=== PATIENT | female | born 1975 | race Caucasian/White ===

== ENCOUNTER → 2018-07-17 | Outpatient (CLI) | payer OTHER | LOC: BMCIMAGING 15:33 | PROVIDERS: ATTEND Orthopaedic Surgery Hand Surgery | DX: M25.511 Pain in right shoulder (principal) ==

== ENCOUNTER 2019-01-02 18:19 | Observation (INO) | payer OTHER ==
[2019-01-02] MEDS ORDERED: ONDANSETRON 4 MG/2 ML VIAL IVP ONE (18:39)
[2019-01-02] MEDS ORDERED: NS 1,000 ML IV ONE (18:39)
[2019-01-02] MEDS ORDERED: HYDROmorphONE/DILAUDID 2 MG/ML INJ IVP ONE ×2 (18:39→19:36)
--- NOTE | 2019-01-02 18:43 | EDPHY ---
H & P Stated Complaint: abd pain, n/v Time Seen by Provider: 01/02/19 18:34 HPI/ROS: CHIEF COMPLAINT: Abdominal pain and distension HISTORY OF PRESENT ILLNESS: The patient is a 43-year-old female who comes to the emergency department complaining of abdominal pain distension and 2 episodes of vomiting that began this afternoon at 1:00 p.m.. She has a history of gastric bypass 2 years ago as well as hiatal hernia repair, cholecystectomy and hysterectomy. She reports that she is still passing gas and did have a normal bowel movement today although she tends to have chronic diarrhea. No blood in her vomit or stool. No fever. She also reports history of pancreatitis but states that this feels much worsens diffuse. No history of ascites or liver disease. She denies urinary symptoms. Severity: Severe Modifying factors: None REVIEW OF SYSTEMS: Constitutional: denies: chills, fever, recent illness, recent injury EENTM: denies: blurred vision, double vision, nose congestion Respiratory: denies: cough, shortness of breath Cardiac: denies: chest pain, irregular heart rate, lightheadedness, palpitations Gastrointestinal/Abdominal: See HPI Genitourinary: denies: dysuria, frequency, hematuria, pain Musculoskeletal: denies: joint pain, muscle pain Skin: denies: lesions, rash, jaundice, bruising Neurological: denies: headache, numbness, paresthesia, tingling, dizziness, weakness Hematologic/Lymphatic: denies: blood clots, easy bleeding, easy bruising Immunologic/allergic: denies: HIV/AIDS, transplant 10 systems reviewed and negative except as noted EXAM: GENERAL: Sitting forward in bed, will not lay back, significant pain. HEAD: Atraumatic, normocephalic. EYES: Pupils equal round and reactive to light, extraocular movements intact, sclera anicteric, conjunctiva are normal. ENT: TMs normal, nares patent, oropharynx clear without exudates. Moist mucous membranes. NECK: Normal range of motion, supple without lymphadenopathy or JVD. LUNGS: Breath sounds clear to auscultation bilaterally and equal. No wheezes rales or rhonchi. HEART: Regular rate and rhythm without murmurs, rubs or gallops. ABDOMEN: Distended, firm, diffusely tender BACK: No CVA tenderness, no spinal tenderness, step-offs or deformities EXTREMITIES: Normal range of motion, no pitting or edema. No clubbing or cyanosis. NEUROLOGICAL: Cranial nerves II through XII grossly intact. Normal speech, normal gait. 5/5 strength, normal movement in all extremities, normal sensation , normal reflexes PSYCH: Normal mood, normal affect. SKIN: Diffuse splotchy sunburn Source: Patient Exam Limitations: No limitations - Personal History Current Tetanus/Diphtheria Vaccine: Yes Current Tetanus Diphtheria and Acellular Pertussis (TDAP): Yes - Medical/Surgical History Hx Asthma: Yes Hx Chronic Respiratory Disease: No Hx Diabetes: No Hx Cardiac Disease: No Hx Renal Disease: No Hx Cirrhosis: No Hx Alcoholism: No Hx HIV/AIDS: No Hx Splenectomy or Spleen Trauma: No Other PMH: Hysterectomy colon resection and appy - Family History Significant Family History: No pertinent family hx - Social History Smoking Status: Current every day smoker Alcohol Use: None Constitutional: Initial Vital Signs Temperature (C) 36.9 C 01/02/19 18:22 Heart Rate 54 L 01/02/19 18:22 Respiratory Rate 16 01/02/19 18:22 Blood Pressure 116/59 L 01/02/19 18:22 O2 Sat (%) 100 01/02/19 18:22 O2 Delivery Mode Room Air Allergies/Adverse Reactions: NSAIDS (Non-Steroidal Anti-Inflamma Allergy (Verified 01/02/19 18:21) Home Medications: Medication Instructions Recorded ALPRAZolam [Xanax 1 MG (RX)] 1 mg PO DAILY PRN 05/15/14 Albuterol [Proventil Inhaler HFA 2 puffs IH Q4 PRN 05/15/14 (RX)] Herbals/Supplements -Info Only 1 ea PO DAILY 01/02/19 Pantoprazole Sodium [Protonix 40mg 40 mg PO DAILY 01/02/19 (*)] Sucralfate [Carafate] 1 gm PO BID 01/02/19 buPROPion [Wellbutrin 100mg (*)] 300 mg PO DAILY 01/02/19 Medical Decision Making - Diagnostics Imaging Results: Imaging Impressions Abdomen CT 01/02/19 18:40 Impression: 1. Nonspecific enteritis with some interloop free fluid. 2. Transition with caliber change involving the distal transverse colon before the level of the splenic flexure, without convincing torsion; could this be a result of adhesions given the patient's prior surgical features following gastric bypass in the left upper quadrant of the abdomen? 3. Status post cholecystectomy with prominent intra- and extrahepatic biliary system. Correlation with a fractionated serum bilirubin is suggested as an ampullary stenosis is not excluded; alternatively, this may represent a "reservoir" type affect given the patient's prior cholecystectomy. 4. Nonobstructive left nephrolithiasis. 5. Status post hysterectomy (and resection of a previously-noted left adnexal mass). Findings were discussed with MARY LOMBARDO MD, and I also reviewed the findings with RAGHAVENDRA GIBSON MD at 20:50, on 01/02/2019. Imaging: Discussed imaging studies w/ call center operator Radiologist ED Course/Re-evaluation: 7:30 p.m. the patient has had continued abdominal pain in his refusing to lay down. She was given a dose of Haldol which helped significantly and then a 2nd dose of Dilaudid. She is now going to CT scan. 8:[address] findings with radiology and with Dr. Gibson and with the patient. Will admit for pain control. No obvious source of her pain at this time other then constipation and gas. She has required several doses of pain medication and will not be able to go home with this level of pain. 9:30 p.m. the patient was evaluated by Dr. Gibson who states that this is happened multiple times to the patient and that she has a history of multiple adhesions. She is hesitant to explore without reviewing previous surgical notes and less there is a very good reason because she is concerned about causing further complication. She does agree with admission but suggested miss into the hospitalist service and have surgery service consult. She also suggests likely small-bowel follow-through. We Have paged Dr. Adair. Differential Diagnosis: Partial list of the Differential diagnosis considered include but were not limited to; obstruction, volvulus, ischemia, constipation and although unlikely based on the history and physical exam, I also considered perforation, acute coronary disease, PE, urinary tract infection, kidney stone. I discussed these differential diagnoses and the plan with the patient as well as the usual and expected course. The patient understands that the diagnosis is provisional and that in medicine we are not always correct and that further workup is often warranted. Usual and customary warnings were given. All of the patient's questions were answered. The patient was instructed to return to the emergency department should the symptoms at all worsen or return, otherwise to followup with the physician as we discussed. - Data Points Laboratory Results: Laboratory Results 01/02/19 18:40 01/02/19 18:40 01/02/19 01/02/19 01/02/19 18:40 18:40 18:40 WBC RBC Hgb Hct MCV MCH MCHC RDW Plt Count MPV Neut % (Auto) Lymph % (Auto) [place] % (Auto) Eos % (Auto) Baso % (Auto) Nucleat RBC Rel Count Absolute Neuts (auto) Absolute Lymphs (auto) Absolute Monos (auto) Absolute Eos (auto) Absolute Basos (auto) Absolute Nucleated RBC Immature Gran % Immature Gran # PT 12.4 SEC SEC (12.0-15.0) INR 0.96 (0.83-1.16) APTT 27.3 SEC SEC (23.0-38.0) Sodium 139 mEq/L mEq/L (135-145) Potassium 3.7 mEq/L mEq/L (3.5-5.2) Chloride 108 mEq/L mEq/L (97-110) Carbon Dioxide 21 mEq/l L mEq/l (22-31) Anion Gap 10 mEq/L mEq/L (6-14) BUN 12 mg/dL mg/dL (7-23) Creatinine 0.5 mg/dL L mg/dL (0.6-1.0) Estimated GFR > 60 Glucose 79 mg/dL mg/dL (70-100) Calcium 8.8 mg/dL mg/dL (8.5-10.4) Total Bilirubin 1.2 mg/dL mg/dL (0.1-1.4) Conjugated Bilirubin 0.2 mg/dL mg/dL (0.0-0.5) Unconjugated Bilirubin 1.0 mg/dL mg/dL (0.0-1.1) AST 15 IU/L IU/L (14-46) ALT 29 IU/L IU/L (9-52) Alkaline Phosphatase 78 IU/L IU/L (38-126) Total Protein 6.4 g/dL g/dL (6.3-8.2) Albumin 4.0 g/dL g/dL (3.5-5.0) Lipase 76 IU/L IU/L (23-300) Beta HCG, Qual NEGATIVE 01/02/19 18:40 WBC 5.43 10^3/uL 10^3/uL (3.80-9.50) RBC 4.09 10^6/uL L 10^6/uL (4.18-5.33) Hgb 12.4 g/dL L g/dL (12.6-16.3) Hct 36.7 % L % (38.0-47.0) MCV 89.7 fL fL (81.5-99.8) MCH 30.3 pg pg (27.9-34.1) MCHC 33.8 g/dL g/dL (32.4-36.7) RDW 13.4 % % (11.5-15.2) Plt Count 225 10^3/uL 10^3/uL (150-400) MPV 10.4 fL fL (8.7-11.7) Neut % (Auto) 61.3 % % (39.3-74.2) Lymph % (Auto) 26.9 % % (15.0-45.0) [place] % (Auto) 6.8 % % (4.5-13.0) Eos % (Auto) 4.4 % % (0.6-7.6) Baso % (Auto) 0.4 % % (0.3-1.7) Nucleat RBC Rel Count 0.0 % % (0.0-0.2) Absolute Neuts (auto) 3.33 10^3/uL 10^3/uL (1.70-6.50) Absolute Lymphs (auto) 1.46 10^3/uL 10^3/uL (1.00-3.00) Absolute Monos (auto) 0.37 10^3/uL 10^3/uL (0.30-0.80) Absolute Eos (auto) 0.24 10^3/uL 10^3/uL (0.03-0.40) Absolute Basos (auto) 0.02 10^3/uL 10^3/uL (0.02-0.10) Absolute Nucleated RBC 0.00 10^3/uL 10^3/uL (0-0.01) Immature Gran % 0.2 % % (0.0-1.1) Immature Gran # 0.01 10^3/uL 10^3/uL (0.00-0.10) PT INR APTT Sodium Potassium Chloride Carbon Dioxide Anion Gap BUN Creatinine Estimated GFR Glucose Calcium Total Bilirubin Conjugated Bilirubin Unconjugated Bilirubin AST ALT Alkaline Phosphatase Total Protein Albumin Lipase Beta HCG, Qual Medications Given: Discontinued Medications Haloperidol Lactate (Haldol Injection) 5 mg IVP EDNOW ONE Stop: 01/02/19 19:17 Last Admin: 01/02/19 19:20 Dose: 5 mg Hydromorphone HCl (Dilaudid) 1 mg IVP EDNOW ONE Stop: 01/02/19 18:40 Last Admin: 01/02/19 18:56 Dose: 1 mg Hydromorphone HCl (Dilaudid) 1 mg IVP EDNOW ONE Stop: 01/02/19 19:37 Last Admin: 01/02/19 19:37 Dose: 1 mg Sodium Chloride (Ns) 1,000 mls @ 0 mls/hr IV EDNOW ONE; Wide Open PRN Reason: Protocol Stop: 01/02/19 18:40 Last Admin: 01/02/19 18:55 Dose: 1,000 mls Ketamine HCl (Ketamine) 20 mg IVP EDNOW ONE Stop: 01/02/19 20:28 Last Admin: 01/02/19 20:44 Dose: 20 mg Ondansetron HCl (Zofran) 4 mg IVP EDNOW ONE Stop: 01/02/19 18:40 Last Admin: 01/02/19 18:56 Dose: 4 mg Departure - Departure Disposition: [facility] Acute Clinical Impression: Abdominal pain Qualifiers: Abdominal location: generalized Qualified Code(s): R10.84 - Generalized abdominal pain Condition: Fair
[2019-01-02 18:58] LABS: PLATELET COUNT 225 10^3/uL (150-400)
[2019-01-02 19:06] LABS: INR 0.96 (0.83-1.16); PROTIME(PATIENT) 12.4 SEC (12.0-15.0)
[2019-01-02] MEDS ORDERED: HALOPERIDOL LACT 5 MG/ML INJ IVP ONE (19:16)
[2019-01-02] MEDS ORDERED: HYDROmorphONE/DILAUDID 1 MG/ML INJ ONE (19:32)
[2019-01-02] MEDS ORDERED: IOPAMIDOL (ISOVUE-300) 100 ML BTL ONE (19:37)
--- NOTE | 2019-01-02 20:21 | CPEKG ---
Test Reason : OPEN Blood Pressure : / mmHG Vent. Rate : 054 BPM Atrial Rate : 054 BPM P-R Int : 163 ms QRS Dur : 105 ms QT Int : 452 ms P-R-T Axes : 069 075 057 degrees QTc Int : 429 ms Sinus rhythm Confirmed by Travon Lindquist ([id number]) on 01/02/2019 8:21:27 PM Referred By: Travon Lindquist Confirmed By:Travon Lindquist
[2019-01-02] MEDS ORDERED: KETAMINE 200 MG/20 ML VIAL IVP ONE (20:27)
--- NOTE | 2019-01-02 22:40 | SOAPPROG ---
[facility] Progress Note Assessment/Plan: Assessment: will dictate full consult History of multiple abdominal surgeries appendectomy gastric bypass ross Hysterectomy lysis of adhesions cholecystectomy combination of lap and open - reports previous surgeons did the best they could with adhesiolysis has history of abdominal bloating - can usually treat at home with backing off on diet Had recent admission in [place] for similar symptoms. Was treated for constipation (original CT had whirl sign which resolved). Was given multiple things for constipation with no results - had consult by bariatric surgeon who said she was not constipated Recent travel in the [facility] through [facility] and [place] Abrupt onset of pain this afternoon - CT scan without abscess or free air. no evidence of volvulus. caliber change in sigmoid colon Still passing a LOT of gas and had regular bowel movement this am. Recommend bowel rest, advance slowly and will need small bowel follow through Physical exam - in pain. abdomen distended but soft. No peritoneal signs. Plan: 01/02/19 22:31 Objective: Vital Signs Temp Pulse Resp BP Pulse Ox 36.7 C 73 16 99/48 L 92 01/02/19 21:52 01/02/19 21:52 01/02/19 21:52 01/02/19 21:52 01/02/19 21:52 01/01/19 01/02/19 01/03/19 05:59 05:59 05:59 Intake Total 1000 Balance 1000 PT 12.4 SEC (12.0-15.0) 01/02/19 18:40 INR 0.96 (0.83-1.16) 01/02/19 18:40 ICD10 Worksheet Patient Problems: Problems Problem Status Onset Abdominal pain Acute
[2019-01-02] MEDS ORDERED: ACETAMINOPHEN 325 MG TAB PO PRN ×2 (22:44)
[2019-01-02] MEDS ORDERED: HYDROmorphONE/DILAUDID 1 MG/ML INJ IVP PRN (22:44)
[2019-01-02] MEDS ORDERED: oxyCODONE IR 5 MG TAB PO PRN (22:44)
[2019-01-02] MEDS ORDERED: ONDANSETRON DISINTEGRATING 4 MG TAB PO PRN (22:44)
[2019-01-02] MEDS ORDERED: ONDANSETRON 4 MG/2 ML VIAL IVP PRN (22:44)
[2019-01-02] MEDS ORDERED: NS 1,000 ML IV SCH (22:45)
[2019-01-02] MEDS ORDERED: ALPRAZolam 1 MG TAB PO PRN (22:55)
[2019-01-02] MEDS ORDERED: ALBUTEROL 60 PUFFS/8 GM MDI IH PRN (22:55)
[2019-01-02] MEDS: HYDROCODONE/APAP 5/325 TAB PO PRN ×2 (23:07→23:35)
--- NOTE | 2019-01-02 23:35 | GHP ---
[f rep st] HISTORY AND PHYSICAL DATE OF ADMISSION: 01/02/2019 CHIEF COMPLAINT: Abdominal pain. HISTORY OF PRESENT ILLNESS: This is a 43-year-old female with history of multiple abdominal surgerie s who presents with abdominal pain. It started today, came on quite rapidly, associated with 2 episo reno of emesis. She has diarrhea at baseline. She does not report any change in this. She not have any questionable meals. Nobody else around her is sick. She describes pain in her upper abdomen in a bandlike distribution which is severe in nature. She received 3 mg of IV Dilaudid, as well as vicky mine in the ED with some relief of her pain. She was seen by Dr. Gloria who did not feel that this wa s acutely surgical. She was admitted to [place] about a month ago for similar symptoms. She was in itially treated for constipation, however, a 2nd surgeon felt as though this was not constipation. H er diet was advanced and she was sent home. She had no other issues until today. She recently had a long road trip all the way to [place] and back. She notes some swelling in her le g that started a few days ago. PAST MEDICAL/SURGICAL HISTORY: 1. Appendectomy. 2. Gastric bypass about 2 years ago with a Becca fundoplication at the time. 3. Hysterectomy. 4. Lysis of adhesions. 5. Cholecystectomy. MEDICATIONS: Please see medication reconciliation. ALLERGIES: NSAIDs. FAMILY HISTORY: Reviewed and noncontributory. SOCIAL HISTORY: She smokes half pack a day. She does not drink. She is . REVIEW OF SYSTEMS: A 10-point review of systems is conducted and is negative except per HPI. PHYSICAL EXAM: VITAL SIGNS: Blood pressure 99/48, heart rate 73, respiration rate 16, saturating 98 % on room air. Temperature is 36.7. GENERAL: This is a pleasant female who is resting somewhat unc omfortably in bed. HEENT: Shows her to be normocephalic, atraumatic. CARDIOVASCULAR: Regular rate and rhythm. No murmurs, rubs, or gallops. PULMONARY: Lungs clear to auscultation bilaterally. AB DOMEN: Shows her abdomen is somewhat distended. She has somewhat high-pitched bowel sounds. She is tender to palpation diffusely. There is no rebound or guarding tenderness. SKIN: Shows no rash. : Shows no Rivera. NEUROLOGIC: Shows her to be alert and oriented x3. She is moving all extremit ies. PSYCHIATRIC: Shows normal mood and affect. LABORATORIES: Hemoglobin is 12. INR is 0.9. Bicarb is 21, creatinine 0.5. LFTs are normal. Lipas e is negative. Her urinalysis is not terribly remarkable. DATA: 1. Discussed with Dr. Lindquist, will admit to med/surg. 2. I personally viewed and interpreted her ECG. This shows sinus bradycardia. 3. I personally viewed and interpreted her abdominal CT scan. This shows what appears to be a small -bowel enteritis. Radiologist sees a caliber change around the distal transverse colon, which is con sidered to be suggestive of possible adhesions. IMPRESSION AND PLAN: 1. Abdominal pain: She has a very complicated abdominal history. General Surgery is consulting and considering exploratory laparoscopy although the patient is quite resistant to this at this time. S he has a nonperitoneal abdominal exam. I think conservative approach is reasonable. I will make her n.p.o., give her IV fluids, and pain control overnight. She additionally has what appears to be an enteritis on her CT scan. We will follow clinically for resolution with conservative management. Co dorinda consider an abdominal x-ray in another day or so if she is not improving. 2. Lower extremity edema: Given her recent car travels, we will check a lower extremity ultrasound. /[id number]/MODL
--- NOTE | 2019-01-03 | GCON ---
[f rep st] CONSULTATION DATE OF CONSULTATION: 01/02/2019 CHIEF COMPLAINT: Abdominal pain. HISTORY OF PRESENT ILLNESS: The patient is a 43-year-old woman who has had multiple abdominal surgeries. She has a longstanding history of bloating with associated abdominal pain. She has been hospitalized for this recently in [place]. She was initially seen in the ER and was told that she was very constipated. She was told to go home and take magnesium citrate, MiraLAX, and enemas. Her pain did not improve. The initial CT per her report showed a swirl sign. She returned 2 days later, and the repeat CT was improved. She was admitted. She was started on GoLYTELY and again was told that this was due to retained fecal material. She was [facility] through the prep when another surgeon was consulted who said that she did not have massive constipation. With some bowel rest, she improved. She has been very active with her job. She has been traveling recently including [place], [place], and [place]. Today at 1 p.m., she had abrupt onset of pain. She has been passing gas all day. In fact, this has been more than normal. She had a large bowel movement this morning. She reports normally very loose bowel movements. She had this abdominal distention. This time the pain was worse, and so she presented to the emergency room. CT scan was obtained which did not show any free air or convincing volvulus. There does seem to be a caliber change in her sigmoid colon. PAST MEDICAL HISTORY: Includes asthma. PAST SURGICAL HISTORY: Includes gastric bypass, Becca, cholecystectomy, appendectomy, lysis of adhesions, hysterectomy. FAMILY HISTORY: Not pertinent. SOCIAL HISTORY: She does use tobacco. She has a full-time job. REVIEW OF SYSTEMS: Per HPI. PHYSICAL EXAMINATION: VITALS: 36.9, 77, 95/45, 16, 95% room air. GENERAL: Pleasant woman lying on gurney on side, able to transition to her back for exam. HEENT: Normocephalic. No gross hearing deficits. Mucous membranes moist. Pupils equal and round. No scleral icterus. LUNGS: Clear to auscultation bilaterally. No increased work of breathing. CARDIAC: Regular rate. No peripheral edema. ABDOMEN: Bowel sounds are present. She is distended. She is soft. She has multiple well-healed abdominal incisions. SKIN: Sunburn across forehead and across abdomen. Otherwise, warm and dry. PSYCH: Mood and affect normal. NEURO: Grossly intact. DATA REVIEWED: I personally reviewed the results of her CT scan, and in fact went over it with Dr. Awad. There does seem to be some edema in the mesentery but no obvious surgical source for the pain. Her white count is normal. Chemistry panel normal. IMPRESSION AND PLAN: The patient is a 43-year-old woman with history of multiple abdominal surgeries. In fact, one of her surgeons report that he did the best he could with the last lysis of adhesions. I recommend she be admitted for bowel rest, and as she is feeling better, consider small bowel follow-through. /[id number]/MODL MTDD
[2019-01-03 05:36] LABS: PLATELET COUNT 159 10^3/uL (150-400)
[2019-01-03] MEDS ORDERED: D5W 1/2 NS W/ 20 KCl/L 1,000 ML IV SCH (06:30)
[2019-01-03] MEDS ORDERED: PANTOPRAZOLE SODIUM 40 MG TAB PO SCH (09:00)
[2019-01-03] MEDS ORDERED: buPROPion 100 MG TAB PO SCH (09:00)
[2019-01-03] MEDS ORDERED: SUCRALFATE 1 GM TAB PO SCH (09:00)
[2019-01-03] MEDS ORDERED: POTASSIUM CL 20 MEQ TAB PO ONE (09:03)
--- NOTE | 2019-01-03 09:38 | ASMTCMCOM ---
CM Note CM Note Notes: Patient with history of abdominal problems and procedures admitted with abdominal pain. Surgery and hospital medicine to follow - bowel rest has been recommended as of now. 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 No d/c needs anticipated; Case Management available if this changes. Date Signed: 01/03/2019 09:38 AM Electronically Signed By:Betsy Suarez RN
--- NOTE | 2019-01-03 10:55 | SOAPPROG ---
[facility] Progress Note Assessment/Plan: Assessment/Plan: 43yo F admitted with abdominal pain, multiple abdominal surgeries and previous lysis of adhesions Pain improved Passing flatus and return of bowel function Bloating dramatically improved since admission Appreciate hospitalist management Dispo: Will need to follow-up with surgery as an outpatient - is established with a surgeon in [place]. Recommend small bowel follow through. Seen with Dr. Gloria. S: much improved this am. No complaints. Pain controlled. No nausea. Passing flatus. O: General: Pleasant, well-nourished and well-groomed woman in no acute distress HENT: Normocephalic, no gross hearing deficits, mucous membranes moist, pupils equal and round Lungs: No increased work of breathing Abdomen: Bowel sounds present, soft and non tender. Significantly less distended than admission. Skin: Warm and dry. Psych: Mood and affect normal Neuro: Grossly intact Objective: Vital Signs Temp Pulse Resp BP Pulse Ox 36.3 C 44 L 12 87/49 L 94 01/03/19 07:09 01/03/19 07:09 01/03/19 07:09 01/03/19 07:09 01/03/19 07:09 Laboratory Results 01/03/19 04:17 01/03/19 04:17 01/02/19 01/03/19 01/04/19 05:59 05:59 05:59 Intake Total 1000 Balance 1000 PT 12.4 SEC (12.0-15.0) 01/02/19 18:40 INR 0.96 (0.83-1.16) 01/02/19 18:40 ICD10 Worksheet Patient Problems: Problems Problem Status Onset Abdominal pain Acute
[2019-01-03 15:09] VITALS: BP 102/51
--- NOTE | 2019-01-03 18:16 | PDDCSUM ---
Discharge Summary Discharge Summary: Date of Admission: 01/02/2019 Date of Discharge: 01/03/2019 Discharge Diagnoses: Abdominal pain, resolved Suspected intra-abdominal adhesions, 2/2 surgeries History of multiple abdominal surgeries Admission Diagnoses: Abdominal pain Lower extremity edema Consultants: General surgery-Dr. Guillermina Gloria [facility] Course: The patient is a 43-year-old female with a history of multiple abdominal surgeries including appendectomy, gastric bypass, Becca fundoplication, hysterectomy, adhesion lysis, and cholecystectomy. She developed severe sharp pain which caused her to come to the ED. She has had a similar admission in [place] for abdominal pain also. Patient was admitted for pain control, bowel rest, and IV fluids and observed overnight. The next day, she was feeling better and was discharged home with instructions to follow up with General surgery in the outpatient setting for a small-bowel follow-through imaging test. Additionally, surgery may be considered in the future to treat this recurrence abdominal pain. Physical Exam: Gen - alert, in NAD. Ambulating. Condition: Fair. Discharged to: Home. Pertinent tests/labs/imaging: Abdomen/pelvis CT with contrast: 1. Nonspecific enteritis with some interloop free fluid. 2. Transition with caliber change involving the distal transverse colon before the level of the splenic flexure, without convincing torsion; could this be a result of adhesions given the patient' s prior surgical features following gastric bypass in the left upper quadrant of the abdomen? 3. Status post cholecystectomy with prominent intra- and extrahepatic biliary system. Correlation with a fractionated serum bilirubin is suggested as an ampullary stenosis is not excluded; alternatively, this may represent a "reservoir" type affect given the patient's prior cholecystectomy. 4. Nonobstructive left nephrolithiasis. 5. Status post hysterectomy (and resection of a previously-noted left adnexal mass). Doppler venous US bilat LE: No DVT. Medications: Please see med rec form. New medication-Alvord 5/325 mg, 1-2 tablets orally Q 6 hours as needed for pain #20. Special instructions: small bowel follow through as outpatient. f/u with surgery (either Dr. Gloria or surgeon in [place]). Return to hospital for severe, worsening, or concerning symptoms. Consider OMT of the abdomen with a DO. Some DOs in [place] include Dr. Wiliam Montana and Dr. Elie Bowden and Dr. Lazaro Cheney who are with [facility] and they do practice OMT. Alternately, you may consider alternative treatments such as acupuncture. Follow up: PCP (Dr. Cleveland Draper) in 1 week. General surgery (Dr. Gloria) in 3 -5 days.
== END 2019-01-03 18:47 | disposition home or self-care (01) ==
LOC: F3E 21:48
PROVIDERS: ADMIT Surgery; ATTEND Surgery
DX: R10.9 Unspecified abdominal pain (principal); Z98.890 Other specified postprocedural states; Z98.84 Bariatric surgery status; Z90.49 Acquired absence of other specified parts of digestive tract; Z90.710 Acquired absence of both cervix and uterus
CPT/HCPCS: 74177; 93005; 93970; G0378; 96374; J1170; J1630; J2405; Q9967